=== PATIENT | male | born 1970 | race Caucasian/White ===

== ENCOUNTER → 2017-02-27 | Outpatient (CLI) | payer OTHER | LOC: RAD 09:38 → MRI 11:00 | DX: S46.011A Strain of muscle(s) and tendon(s) of the rotator cuff of right shoulder, initial encounter (principal); S42.291A Other displaced fracture of upper end of right humerus, initial encounter for closed fracture; M24.011 Loose body in right shoulder; S43.491A Other sprain of right shoulder joint, initial encounter | CPT/HCPCS: 73040; 73222; A9577; Q9962 ==